=== PATIENT | male | born 1960 | race Caucasian/White ===

== ENCOUNTER 2018-01-24 18:23 | Emergency (ER) | payer MEDICAID ==
[2018-01-24 18:42] VITALS: BP 136/100
--- NOTE | 2018-01-24 19:25 | EDM.PDOC ---
ED HPI GENERAL MEDICAL PROBLEM - General Chief Complaint: Eye Problems Stated Complaint: [id number] BLOOD BLISTER IN EYE GROWING SINCE MORNING Time Seen by Provider: 01/24/18 19:17 Source of Information: Reports: Other (shelter staff) History Limitations: Reports: Uncooperative - History of Present Illness INITIAL COMMENTS - FREE TEXT/NARRATIVE: Patient presents to the ED for left eye injury. shelter staff noted some mild "bloodshot" eyes this evening around 16:00. The left eye progressed to the point where there was redness involving all of the eye except the area directly around the iris. He did not complain of pain nor vision changes, however, history is very difficult to obtain. shelter staff and guardian report that he does have a history of self injuring behavior but this is uncommon as of late. No recent illness. No fever. No known trauma. Discussed with patient's guardian who reports that he normally has good vision and pupils are equal. No history of cataract known to staff. Guardian reports good eyesight normally, unsure of number just that he does not need glasses. - Related Data Allergies Allergy/AdvReac Type Severity Reaction Status Date / Time walnut Allergy Cannot Verified 01/24/18 18:42 Remember corn Allergy Difficulty Uncoded 01/24/18 18:42 Breathing Home Meds: Home Meds Albuterol [Proventil Neb Soln] 2.5 mg INH TID PRN 01/26/15 [History] Budesonide [Pulmicort] 0.5 mg INH BID 01/26/15 [History] Calcium Carbonate/Vitamin D3 [Oyster Shell Calcium-Vit D Tab] 1 each PO BID [History] Fluticasone Furoate [Veramyst] 2 spray NS DAILY 01/26/15 [History] Ibandronate [Boniva] 150 mg PO .MONTHLY 01/26/15 [History] Imipramine HCl 50 mg PO BEDTIME 01/26/15 [History] Lisinopril 30 mg PO DAILY 01/26/15 [History] Na Chloride. 1 gm PO BID 01/26/15 [History] QUEtiapine [SEROquel] 300 mg PO BEDTIME 01/26/15 [History] Escitalopram [Lexapro] 20 mg PO DAILY 09/21/15 [History] LORazepam [Ativan] 1 mg PO ONETIME 09/22/15 [History] Clindamycin Phosphate MISC BID 12/02/15 [History] Ferrous Fumarate [Ferrocite] 106 mg ORAL.INH BID 12/02/15 [History] lamoTRIgine [Lamictal] 150 mg PO BID 12/02/15 [History] Past Medical History HEENT History: Reports: Allergic Rhinitis Cardiovascular History: Reports: Hypertension Respiratory History: Reports: Asthma Gastrointestinal History: Reports: Other (See Below) Other Gastrointestinal History: Esophageal obstruction (impacted peach pit) Attempted removal (Dr. Marte). Transferred to [facility]. Genitourinary History: Reports: Urinary Incontinence Musculoskeletal History: Reports: Other (See Below) Other Musculoskeletal History: LEFT ARM CONTRACTURE Neurological History: Reports: Cerebral Palsy, Seizure, Other (See Below) Other Neuro History: Intellectual disability, impulse control disorder, mood disorder. Psychiatric History: Reports: Emotional Problems, Mood Swings Other Psychiatric History: CP, cerebral palsy, impulse control disorder, intellectual disability. Mental retardation Endocrine/Metabolic History: Reports: Osteopenia Hematologic History: Reports: Anemia, Iron Deficiency Immunologic History: Reports: None Oncologic (Cancer) History: Reports: None Dermatologic History: Reports: Other (See Below) Other Dermatologic History: Acne, gum disease, nonorganic enuresis. (right olecranon bursitis - before) - Past Surgical History Cardiovascular Surgical History: Reports: None Respiratory Surgical History: Reports: None GI Surgical History: Reports: Other (See Below) Male Surgical History: Reports: Other (See Below) Dermatological Surgical History: Reports: Other (See Below) Social & Family History - Family History Family Medical History: Noncontributory - Tobacco Use Smoking Status *Q: Never Smoker Second Hand Smoke Exposure: No - Caffeine Use Caffeine Use: Reports: Soda - Alcohol Use Days Per Week of Alcohol Use: 0 - Recreational Drug Use Recreational Drug Use: No Drug Use in Last 12 Months: No ED ROS GENERAL - Review of Systems Review Of Systems: Unable To Obtain ED EXAM GENERAL W FULL EYE - Physical Exam Exam: See Below Exam Limited By: Uncooperative General Appearance: Alert, No Apparent Distress Eye Exam: Left Eye: Abnormal Pupil, Other (Subconjunctival hemorrhage with ? laceration of the cornea. ) Eyelids: Bilateral: Normal Appearance Pupillary Reaction: Right: Brisk, Left: Absent Ears: Normal External Exam, Hearing Grossly Normal Nose: Normal Inspection, No Blood Throat/Mouth: Normal Lips, Normal Teeth, No Airway Compromise Head: Atraumatic, Normocephalic Neck: Normal Inspection, Full Range of Motion Respiratory/Chest: No Respiratory Distress, Lungs Clear, No Accessory Muscle Use Cardiovascular: Regular Rate, Rhythm, No Murmur GI/Abdominal: Normal Bowel Sounds, Soft, Non-Tender (Male) Exam: Deferred Back Exam: Normal Inspection Neurological: Alert, Other (At baseline) Psychiatric: Other (At baseline, somewhat cooperative with exam) Skin Exam: Warm, Dry Lymphatic: No Adenopathy Course - Vital Signs Last Recorded V/S: Last Vital Signs Temp 37.0 C 01/24/18 18:32 Pulse 99 01/24/18 18:32 Resp 21 H 01/24/18 18:32 BP 136/100 H 01/24/18 18:32 Pulse Ox 98 01/24/18 18:32 - Re-Assessments/Exams Free Text/Narrative Re-Assessment/Exam: Discussed case with Dr. Baum the area operations director fire behavior analyst at [facility] who has agreed to accept the patient. He will exam on arrival. Will travel by private care. shelter staff to transport. Discussed with them and with guardian who agrees to transfer by private vehicle. 01/24/182029 Departure - Departure Time of Disposition: 20:30 Disposition: DC/Tfer to Acute Hospital 02 Clinical Impression: Eye injury Qualifiers: Encounter type: initial encounter Laterality: left Qualified Code(s): S05.92XA - Unspecified injury of left eye and orbit, initial encounter - Discharge Information Referrals: Emmanuel May MD [Primary Care Provider] - Forms: ED Department Discharge Additional Instructions: Proceed by private vehicle directly to [facility] ED where the fire behavior analyst will see you. May take evening medication with a sip of water then nothing by mouth.
== END 2018-01-24 20:45 ==
LOC: DL.ED 18:23
DX: S05.92XA Unspecified injury of left eye and orbit, initial encounter (principal); I10 Essential (primary) hypertension; J45.909 Unspecified asthma, uncomplicated; Z91.018 Allergy to other foods; Z79.899 Other long term (current) drug therapy; X58.XXXA Exposure to other specified factors, initial encounter
CPT/HCPCS: 99284

== ENCOUNTER 2018-12-08 11:59 | Emergency (ER) | payer MEDICAID ==
[2018-12-08 12:05] VITALS: BP 156/107
--- NOTE | 2018-12-08 12:13 | EDM.PDOC ---
ED HPI GENERAL MEDICAL PROBLEM - General Chief Complaint: Respiratory Problem Stated Complaint: UNKNOWN Time Seen by Provider: 12/08/18 12:08 Source of Information: Reports: Patient, EMS, Family History Limitations: Reports: Other (mentally challenged. unco-op) - History of Present Illness INITIAL COMMENTS - FREE TEXT/NARRATIVE: sent from home via sports anchor on mentally challenged pt who is unco-op, thinks he has congestion and pulled out his tooth c/o pain. - Related Data Allergies Allergy/AdvReac Type Severity Reaction Status Date / Time walnut Allergy Cannot Verified 01/24/18 18:42 Remember corn Allergy Difficulty Uncoded 01/24/18 18:42 Breathing Home Meds: Home Meds Albuterol [Proventil Neb Soln] 2.5 mg INH TID PRN 01/26/15 [History] Budesonide [Pulmicort] 0.5 mg INH BID 01/26/15 [History] Calcium Carbonate/Vitamin D3 [Oyster Shell Calcium-Vit D Tab] 1 each PO BID [History] Fluticasone Furoate [Veramyst] 2 spray NS DAILY 01/26/15 [History] Ibandronate [Boniva] 150 mg PO .MONTHLY 01/26/15 [History] Imipramine HCl 50 mg PO BEDTIME 01/26/15 [History] Lisinopril 30 mg PO DAILY 01/26/15 [History] Na Chloride. 1 gm PO BID 01/26/15 [History] QUEtiapine [SEROquel] 300 mg PO BEDTIME 01/26/15 [History] Escitalopram [Lexapro] 20 mg PO DAILY 09/21/15 [History] LORazepam [Ativan] 1 mg PO ONETIME 09/22/15 [History] Clindamycin Phosphate MISC BID 12/02/15 [History] Ferrous Fumarate [Ferrocite] 106 mg ORAL.INH BID 12/02/15 [History] lamoTRIgine [Lamictal] 150 mg PO BID 12/02/15 [History] Past Medical History HEENT History: Reports: Allergic Rhinitis Cardiovascular History: Reports: Hypertension Respiratory History: Reports: Asthma Gastrointestinal History: Reports: Other (See Below) Other Gastrointestinal History: Esophageal obstruction (impacted peach pit) Attempted removal (Dr. Marte). Transferred to [facility]. Genitourinary History: Reports: Urinary Incontinence Musculoskeletal History: Reports: Other (See Below) Other Musculoskeletal History: LEFT ARM CONTRACTURE Neurological History: Reports: Cerebral Palsy, Seizure, Other (See Below) Other Neuro History: Intellectual disability, impulse control disorder, mood disorder. Psychiatric History: Reports: Emotional Problems, Mood Swings Other Psychiatric History: CP, cerebral palsy, impulse control disorder, intellectual disability. Mental retardation Endocrine/Metabolic History: Reports: Osteopenia Hematologic History: Reports: Anemia, Iron Deficiency Immunologic History: Reports: None Oncologic (Cancer) History: Reports: None Dermatologic History: Reports: Other (See Below) Other Dermatologic History: Acne, gum disease, nonorganic enuresis. (right olecranon bursitis - before) - Past Surgical History Cardiovascular Surgical History: Reports: None Respiratory Surgical History: Reports: None GI Surgical History: Reports: Other (See Below) Male Surgical History: Reports: Other (See Below) Dermatological Surgical History: Reports: Other (See Below) Social & Family History - Family History Family Medical History: Noncontributory - Caffeine Use Caffeine Use: Reports: Soda ED ROS GENERAL - Review of Systems Review Of Systems: ROS reveals no pertinent complaints other than HPI. ED EXAM, GENERAL - Physical Exam Exam: See Below Exam Limited By: No Limitations General Appearance: Alert, WD/WN, No Apparent Distress, Other (unco-op, M.C pt, difficult to eval) Ears: Hearing Grossly Normal Throat/Mouth: Normal Voice, No Airway Compromise, Other (upper plate, no gross bleeding, unable eval teeth) Head: Atraumatic Neck: Non-Tender, Full Range of Motion Respiratory/Chest: No Respiratory Distress, Rales, Rhonchi. No: Decreased Breath Sounds Cardiovascular: Regular Rate, Rhythm GI/Abdominal: Soft, Non-Tender Neurological: Alert Psychiatric: Normal Affect, Normal Mood Skin Exam: Warm, Dry, Normal Color Lymphatic: No Adenopathy Course - Vital Signs Last Recorded V/S: Last Vital Signs Temp 37.2 C 12/08/18 12:00 Pulse 98 12/08/18 12:00 Resp 24 H 12/08/18 12:00 BP 156/107 H 12/08/18 12:00 Pulse Ox 97 12/08/18 12:00 - Orders/Labs/Meds Orders: Active Orders 24 hr Category Date Time Status Chest 1V Frontal [CR] Urgent Exams 12/08/18 12:07 Taken Labs: Laboratory Tests 12/08/18 12/08/18 Range/Units 12:26 12:26 WBC 10.1 H (5.0-10.0) 10^3/uL RBC 4.83 (4.6-6.2) 10^6/uL Hgb 12.8 L D (14.0-18.0) g/dL Hct 38.4 L (40.0-54.0) % MCV 79.5 L (80-100) fL MCH 26.5 L (27.0-34.0) pg MCHC 33.3 (33.0-35.0) g/dL Plt Count 252 (150-450) 10^3/uL Neut % (Auto) 59.8 (42.2-75.2) % Lymph % (Auto) 27.3 (20.5-50.1) % [place] % (Auto) 7.1 (2-8) % Eos % (Auto) 5.5 H (1.0-3.0) % Baso % (Auto) 0.3 (0.0-1.0) % Sodium 134 L (135-145) mmol/L Potassium 4.1 (3.6-5.0) mmol/L Chloride 97 L (101-111) mmol/L Carbon Dioxide 26.0 (21.0-31.0) mmol/L Anion Gap 15.1 BUN 14 (7-18) mg/dL Creatinine 1.0 (0.6-1.3) mg/dL Est Cr Clr Drug Dosing TNP Estimated GFR (MDRD) > 60 BUN/Creatinine Ratio 14.00 Glucose 95 (74-105) mg/dL Calcium 9.8 (8.4-10.2) mg/dl Total Bilirubin 0.7 (0.2-1.0) mg/dL AST 28 (10-42) IU/L ALT 27 (10-60) IU/L Alkaline Phosphatase 60 (42-121) IU/L Total Protein 7.3 (6.7-8.2) g/dl Albumin 4.2 (3.2-5.5) g/dl Globulin 3.1 Albumin/Globulin Ratio 1.35 - Re-Assessments/Exams Free Text/Narrative Re-Assessment/Exam: 12/08/18 13:12 results discussed with sports anchor Departure - Departure Time of Disposition: 13:13 Disposition: Home, Self-Care 01 Condition: Good Clinical Impression: Tooth decay, Bronchitis - Discharge Information Instructions: Acute Bronchitis, Adult, [id number] Forms: ED Department Discharge Additional Instructions: 1) soft diet 2) see dentist rx given; clindamycin 150mg qid x 40 - My Orders Last 24 Hours: My Active Orders 12/08/18 12:07 Chest 1V Frontal [CR] Urgent - Assessment/Plan Last 24 Hours: My Active Orders 12/08/18 12:07 Chest 1V Frontal [CR] Urgent
[2018-12-08 12:53] LABS: ANION GAP 15.1; CHLORIDE,CL 97 mmol/L (101-111); SODIUM,NA 134 mmol/L (135-145)
== END 2018-12-08 13:20 | disposition home or self-care (01) ==
LOC: DL.ED 11:59
DX: K04.7 Periapical abscess without sinus (principal); J40 Bronchitis, not specified as acute or chronic; I10 Essential (primary) hypertension; Z91.018 Allergy to other foods; Z79.899 Other long term (current) drug therapy
CPT/HCPCS: 36415; 71045; 80053; 85025; 99283-25

== ENCOUNTER 2019-05-29 18:13 | Emergency (ER) | payer MEDICAID ==
[2019-05-29] MEDS ORDERED: LORazepam 1 MG Tab PO ONE (19:10)
[2019-05-29] MEDS ORDERED: Ketamine 500 mg/10 ML MDV IM ONE (21:57)
[2019-05-29] MEDS ORDERED: Glycopyrrolate 0.2 MG/ML 2 ML SDV IVPUSH ONE (21:58)
[2019-05-29] MEDS ORDERED: Iopamidol 612 MG/ML 75 ML Bottle IVPUSH ONE (22:10)
[2019-05-29] MEDS ORDERED: Ketamine 500 mg/10 ML MDV IV ONE (23:03)
[2019-05-29 23:08] LABS: ANION GAP 18.1
--- NOTE | 2019-05-29 23:21 | EDM.PDOC ---
ED HPI GENERAL MEDICAL PROBLEM - General Chief Complaint: Abdominal Pain Stated Complaint: AMBULANCE Time Seen by Provider: 05/29/19 19:20 Source of Information: Reports: Family, Other (staff care attendents) History Limitations: Reports: No Limitations - History of Present Illness INITIAL COMMENTS - FREE TEXT/NARRATIVE: ED wheel chair, Mentally handicapped patient with 2 staff. Staff report, patient fell on Monday in [place] ? seizure, No post ictal period, assess by RN appeared fine, Today, seems more agitated , change in behavior, No fever, decreased appetite, Not interacting with staff as much. Abdominal Pain Score (Numeric/FACES): 5 - Related Data Allergies Allergy/AdvReac Type Severity Reaction Status Date / Time walnut Allergy Cannot Verified 05/29/19 18:25 Remember corn Allergy Difficulty Uncoded 05/29/19 18:25 Breathing Home Meds: Home Meds Albuterol [Proventil Neb Soln] 2.5 mg INH TID PRN 01/26/15 [History] Budesonide [Pulmicort] 0.5 mg INH BID 01/26/15 [History] Calcium Carbonate/Vitamin D3 [Oyster Shell Calcium-Vit D Tab] 1 each PO BID [History] Fluticasone Furoate [Veramyst] 2 spray NS DAILY 01/26/15 [History] Ibandronate [Boniva] 150 mg PO .MONTHLY 01/26/15 [History] Imipramine HCl 50 mg PO BEDTIME 01/26/15 [History] Na Chloride. 1 gm PO BID 01/26/15 [History] QUEtiapine [SEROquel] 300 mg PO BEDTIME 01/26/15 [History] Escitalopram [Lexapro] 20 mg PO DAILY 09/21/15 [History] Clindamycin Phosphate 1 ml MISC BID 12/02/15 [History] Ferrous Fumarate [Ferrocite] 106 mg ORAL.INH BID 12/02/15 [History] lamoTRIgine [Lamictal] 150 mg PO BID 12/02/15 [History] Metoprolol Tartrate 25 mg PO BID 05/29/19 [History] Tamsulosin [Flomax] 0.4 mg PO BEDTIME 05/29/19 [History] Past Medical History HEENT History: Reports: Allergic Rhinitis Cardiovascular History: Reports: Hypertension Respiratory History: Reports: Asthma Gastrointestinal History: Reports: Other (See Below) Other Gastrointestinal History: Esophageal obstruction (impacted peach pit) Attempted removal (Dr. Marte). Transferred to [facility]. Genitourinary History: Reports: Urinary Incontinence Musculoskeletal History: Reports: Other (See Below) Other Musculoskeletal History: LEFT ARM CONTRACTURE Neurological History: Reports: Cerebral Palsy, Seizure, Other (See Below) Other Neuro History: Intellectual disability, impulse control disorder, mood disorder. Psychiatric History: Reports: Emotional Problems, Mood Swings Other Psychiatric History: CP, cerebral palsy, impulse control disorder, intellectual disability. Mental retardation Endocrine/Metabolic History: Reports: Osteopenia Hematologic History: Reports: Anemia, Iron Deficiency Immunologic History: Reports: None Oncologic (Cancer) History: Reports: None Dermatologic History: Reports: Other (See Below) Other Dermatologic History: Acne, gum disease, nonorganic enuresis. (right olecranon bursitis - before) - Past Surgical History Head Surgeries/Procedures: Reports: None Cardiovascular Surgical History: Reports: None Respiratory Surgical History: Reports: None GI Surgical History: Reports: Other (See Below) Dermatological Surgical History: Reports: Other (See Below) Social & Family History - Family History Family Medical History: Noncontributory - Tobacco Use Smoking Status *Q: Never Smoker Second Hand Smoke Exposure: No - Caffeine Use Caffeine Use: Reports: Coffee - Recreational Drug Use Recreational Drug Use: No ED ROS GENERAL - Review of Systems Review Of Systems: ROS reveals no pertinent complaints other than HPI. Constitutional: Reports: Decreased Appetite HEENT: Reports: No Symptoms Respiratory: Reports: Cough, Other (hx COPD ) Cardiovascular: Reports: No Symptoms GI/Abdominal: Reports: Constipation, Difficulty Swallowing, Distension Musculoskeletal: Reports: Other (weakness left arm from remote previous falls ) Skin: Reports: No Symptoms Psychiatric: Reports: Agitation ED EXAM, GI/ABD - Physical Exam Exam: See Below Text/Narrative:: Exam complete following sedation . Exam Limited By: Combative/Threatening General Appearance: Alert, No Apparent Distress Eyes: Bilateral: EOMI, Abnormal EOM, Erythema Ears: Normal External Exam, Hearing Grossly Normal Nose: Normal Inspection Throat/Mouth: Normal Inspection Head: Atraumatic, Normocephalic Neck: Full Range of Motion Respiratory/Chest: Normal Breath Sounds Cardiovascular: Normal Peripheral Pulses, Regular Rate, Rhythm GI/Abdominal Exam: Normal Bowel Sounds, Soft, Non-Tender, No Organomegaly, Other (round) Extremities: Normal Inspection, Other (contractures bilateral upper, gerater on left, muscular atrophy humerus area on left) Neurological: Alert, Other (developmental delayed, ). No: Normal Cognition Psychiatric: Other (agitated combative yelling) Skin Exam: Warm, Dry, Intact, Normal Color. No: Erythema Course - Vital Signs Last Recorded V/S: Last Vital Signs Temp 98.7 F 05/30/19 00:14 Pulse 105 H 05/30/19 00:14 Resp 22 H 05/30/19 00:14 BP 129/73 05/30/19 00:14 Pulse Ox 99 05/30/19 00:14 - Orders/Labs/Meds Labs: Laboratory Tests 05/29/19 05/29/19 05/29/19 Range/Units 19:04 22:30 22:30 WBC 18.3 H (5.0-10.0) 10^3/uL RBC 5.28 (4.6-6.2) 10^6/uL Hgb 14.5 D (14.0-18.0) g/dL Hct 42.9 (40.0-54.0) % MCV 81.3 (80-100) fL MCH 27.5 (27.0-34.0) pg MCHC 33.8 (33.0-35.0) g/dL Plt Count 343 D (150-450) 10^3/uL Neut % (Auto) 82.3 H (42.2-75.2) % Lymph % (Auto) 10.9 L (20.5-50.1) % [place] % (Auto) 6.4 (2-8) % Eos % (Auto) 0.2 L (1.0-3.0) % Baso % (Auto) 0.2 (0.0-1.0) % PT 9.9 (9.0-12.0) SEC INR 1.0 (0.9-1.2) Sodium (135-145) mmol/L Potassium (3.6-5.0) mmol/L Chloride (101-111) mmol/L Carbon Dioxide (21.0-31.0) mmol/L Anion Gap BUN (7-18) mg/dL Creatinine (0.6-1.3) mg/dL Est Cr Clr Drug Dosing mL/min Estimated GFR (MDRD) BUN/Creatinine Ratio Glucose (74-105) mg/dL Lactic Acid (0.5-2.2) mmol/L Calcium (8.4-10.2) mg/dl Total Bilirubin (0.2-1.0) mg/dL AST (10-42) IU/L ALT (10-60) IU/L Alkaline Phosphatase (42-121) IU/L Total Protein (6.7-8.2) g/dl Albumin (3.2-5.5) g/dl Globulin Albumin/Globulin Ratio Amylase (28-100) U/L Lipase (22-51) U/L Urine Color Yellow (YELLOW) Urine Appearance Clear (CLEAR) Urine pH 7.0 (5.0-9.0) Ur Specific [place] 1.020 (1.005-1.030) Urine Protein Trace H (NEGATIVE) Urine Glucose (UA) Negative (NEGATIVE) Urine Ketones Negative (NEGATIVE) Urine Occult Blood Negative (NEGATIVE) Urine Nitrite Negative (NEGATIVE) Urine Bilirubin Negative (NEGATIVE) Urine Urobilinogen 0.2 (0.2-1.0) mg/dL Ur Leukocyte Esterase Negative (NEGATIVE) Urine RBC 0-5 /HPF Urine WBC 0-5 (0-5/HPF) /HPF Ur Epithelial Cells Rare (NOT SEEN) /HPF Amorphous Sediment Moderate (NOT SEEN) /HPF Urine Bacteria Few (0-FEW/HPF) /HPF Granular Casts Few (NOT SEEN) /LPF 05/29/19 05/29/19 Range/Units 22:30 23:50 WBC (5.0-10.0) 10^3/uL RBC (4.6-6.2) 10^6/uL Hgb (14.0-18.0) g/dL Hct (40.0-54.0) % MCV (80-100) fL MCH (27.0-34.0) pg MCHC (33.0-35.0) g/dL Plt Count (150-450) 10^3/uL Neut % (Auto) (42.2-75.2) % Lymph % (Auto) (20.5-50.1) % [place] % (Auto) (2-8) % Eos % (Auto) (1.0-3.0) % Baso % (Auto) (0.0-1.0) % PT (9.0-12.0) SEC INR (0.9-1.2) Sodium 139 (135-145) mmol/L Potassium 4.1 (3.6-5.0) mmol/L Chloride 99 L (101-111) mmol/L Carbon Dioxide 26.0 (21.0-31.0) mmol/L Anion Gap 18.1 BUN 25 H (7-18) mg/dL Creatinine 1.4 H (0.6-1.3) mg/dL Est Cr Clr Drug Dosing 57.00 mL/min Estimated GFR (MDRD) 52 BUN/Creatinine Ratio 17.85 Glucose 117 H (74-105) mg/dL Lactic Acid 1.9 (0.5-2.2) mmol/L Calcium 10.1 (8.4-10.2) mg/dl Total Bilirubin 0.9 (0.2-1.0) mg/dL AST 44 H (10-42) IU/L ALT 27 (10-60) IU/L Alkaline Phosphatase 68 (42-121) IU/L Total Protein 8.1 (6.7-8.2) g/dl Albumin 4.7 (3.2-5.5) g/dl Globulin 3.4 Albumin/Globulin Ratio 1.38 Amylase 29 (28-100) U/L Lipase 31 (22-51) U/L Urine Color (YELLOW) Urine Appearance (CLEAR) Urine pH (5.0-9.0) Ur Specific Richardson (1.005-1.030) Urine Protein (NEGATIVE) Urine Glucose (UA) (NEGATIVE) Urine Ketones (NEGATIVE) Urine Occult Blood (NEGATIVE) Urine Nitrite (NEGATIVE) Urine Bilirubin (NEGATIVE) Urine Urobilinogen (0.2-1.0) mg/dL Ur Leukocyte Esterase (NEGATIVE) Urine RBC /HPF Urine WBC (0-5/HPF) /HPF Ur Epithelial Cells (NOT SEEN) /HPF Amorphous Sediment (NOT SEEN) /HPF Urine Bacteria (0-FEW/HPF) /HPF Granular Casts (NOT SEEN) /LPF Meds: Medications Discontinued Medications Generic Name Dose Route Start Last Admin Trade Name Freq PRN Reason Stop Dose Admin Glycopyrrolate 0.4 mg 05/29/19 21:58 05/29/19 22:33 Glycopyrrolate IVPUSH 05/29/19 21:59 0.4 mg ONETIME ONE Administration Ceftriaxone Sodium 1 gm/ 50 mls @ 50 mls/hr 05/29/19 23:48 05/30/19 00:09 Sodium Chloride IV 05/30/19 00:47 50 mls/hr ONETIME ONE Administration Sodium Chloride 1,000 mls @ 50 mls/hr 05/29/19 23:48 05/30/19 00:08 Normal Saline IV 05/30/19 19:47 50 mls/hr .BOLUS ONE Administration Iopamidol 75 ml 05/29/19 22:10 Isovue-300 (61%) IVPUSH 05/29/19 22:11 ONETIME ONE Ketamine HCl 600 mg 05/29/19 21:57 05/29/19 22:33 Ketalar IM 05/29/19 21:58 600 mg ONETIME ONE Administration Ketamine HCl 80 mg 05/29/19 23:03 05/29/19 23:04 Ketalar IV 05/29/19 23:04 80 mg ONETIME ONE Administration Lorazepam 1 mg 05/29/19 19:10 05/29/19 19:23 Ativan PO 05/29/19 19:11 1 mg ONETIME ONE Administration Lorazepam 2 mg 05/30/19 00:07 05/30/19 00:11 Ativan IVPUSH 05/30/19 00:08 2 mg ONETIME ONE Administration - Radiology Interpretation Free Text/Narrative:: see reports - Re-Assessments/Exams Free Text/Narrative Re-Assessment/Exam: 05/31/19 07:16 Patient agitated, flappng, yelling pushing at familiar staff louder and striking out at nsg staff, , Departure - Departure Time of Disposition: 00:35 Disposition: DC/Tfer to Acute Hospital 02 Condition: Good Clinical Impression: Constipation by delayed colonic transit Contusion of scalp Qualifiers: Encounter type: initial encounter Qualified Code(s): S00.03XA - Contusion of scalp, initial encounter Altered mental state Qualifiers: Altered mental status type: unspecified Qualified Code(s): R41.82 - Altered mental status, unspecified RLL pneumonia Qualifiers: Pneumonia type: due to unspecified organism Qualified Code(s): J18.1 - Lobar pneumonia, unspecified organism - Discharge Information *PRESCRIPTION DRUG MONITORING PROGRAM REVIEWED*: No *COPY OF PRESCRIPTION DRUG MONITORING REPORT IN PATIENT CAROLEE: No Referrals: PCP,None [Primary Care Provider] - Forms: ED Department Discharge
[2019-05-29] MEDS ORDERED: Sodium Chloride 0.9% 1,000 ML IV ONE (23:48)
[2019-05-29] MEDS ORDERED: cefTRIAXone 1 GM in Sodium Chloride 0.9% 50 ML IV ONE (23:48)
[2019-05-30] MEDS ORDERED: LORazepam 2 MG/ML Syringe IVPUSH ONE (00:07)
[2019-05-30 00:15] VITALS: BP 129/73
== END 2019-05-30 00:35 ==
LOC: DL.ED 18:13
DX: S00.03XA Contusion of scalp, initial encounter (principal); J18.1 Lobar pneumonia, unspecified organism; K59.01 Slow transit constipation; R41.82 Altered mental status, unspecified; I10 Essential (primary) hypertension; J45.909 Unspecified asthma, uncomplicated; Z91.018 Allergy to other foods; Z79.899 Other long term (current) drug therapy; W18.39XA Other fall on same level, initial encounter
CPT/HCPCS: 36415; 70450; 71045; 74018; 74176; 80053; 81001; 82150; 83605; 83690; 85025; 85610; 87040; 96365; 96372; 96375; 99285; A9270; J0696; J2060; J3490; J7030; J7050

== ENCOUNTER 2019-09-23 17:16 | Emergency (ER) | payer MEDICAID ==
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
== END 2019-09-23 18:10 | disposition home or self-care (01) ==
LOC: DL.ED 17:16
DX: S01.01XA Laceration without foreign body of scalp, initial encounter (principal); I10 Essential (primary) hypertension; J45.909 Unspecified asthma, uncomplicated; G40.909 Epilepsy, unspecified, not intractable, without status epilepticus; Z91.018 Allergy to other foods; Z79.51 Long term (current) use of inhaled steroids; Z79.899 Other long term (current) drug therapy; W01.10XA Fall on same level from slipping, tripping and stumbling with subsequent striking against unspecified object, initial encounter; Y92.009 Unspecified place in unspecified non-institutional (private) residence as the place of occurrence of the external cause
CPT/HCPCS: 12001; 99282

== ENCOUNTER 2020-03-18 17:53 | Emergency (ER) | payer MEDICAID ==
[2020-03-18 18:13] VITALS: BP 216/164; PULSE 74
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
== END 2020-03-18 19:05 | disposition home or self-care (01) ==
LOC: DL.ED 17:53
DX: S80.02XA Contusion of left knee, initial encounter (principal); I10 Essential (primary) hypertension; J45.909 Unspecified asthma, uncomplicated; D50.9 Iron deficiency anemia, unspecified; Z91.018 Allergy to other foods; Z79.899 Other long term (current) drug therapy; V89.2XXA Person injured in unspecified motor-vehicle accident, traffic, initial encounter
CPT/HCPCS: 99284

== ENCOUNTER 2020-10-17 20:53 | Emergency (ER) | payer MEDICAID ==
[2020-10-17 21:20] VITALS: BP 167/84; PULSE 75
[2020-10-17] MEDS ORDERED: Ondansetron 4 MG Tab.DIS PO ONE (21:45)
[2020-10-17] MEDS ORDERED: Ondansetron 4 MG/2 ML SDV IVPUSH ONE (21:48)
--- NOTE | 2020-10-17 21:48 | EDM.PDOC ---
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 also pt not acting his usual self today. and been vomitng retching on-off. - Related Data Allergies Allergy/AdvReac Type Severity Reaction Status Date / Time animal dander Allergy Cannot Verified 10/17/20 21:21 Remember mold Allergy Cannot Verified 10/17/20 21:21 Remember ragweed pollen Allergy Cannot Verified 10/17/20 21:21 Remember walnut Allergy Cannot Verified 10/17/20 21:21 Remember corn Allergy Difficulty Uncoded 10/17/20 21:21 Breathing cotton seed Allergy Cannot Uncoded 10/17/20 21:21 Remember dust Allergy Cannot Uncoded 10/17/20 21:21 Remember Home Meds: Home Meds Albuterol [Proventil Neb Soln] 2.5 mg INH TID PRN 01/26/15 [History] Budesonide [Pulmicort] 0.5 mg INH BID 01/26/15 [History] Calcium Carbonate/Vitamin D3 [Oyster Shell Calcium-Vit D Tab] 1 each PO BID 01/26/15 [History] Fluticasone Furoate [Veramyst] 2 spray NASBOTH DAILY 01/26/15 [History] Ibandronate [Boniva] 150 mg PO .MONTHLY 01/26/15 [History] Imipramine HCl 50 mg PO BEDTIME 01/26/15 [History] Na Chloride. 1 gm PO BID 01/26/15 [History] QUEtiapine [SEROquel] 300 mg PO BEDTIME 01/26/15 [History] Escitalopram [Lexapro] 20 mg PO BEDTIME 09/21/15 [History] Clindamycin Phosphate 1 ml TOP BID 12/02/15 [History] Ferrous Fumarate [Ferrocite] 106 mg PO BID 12/02/15 [History] lamoTRIgine [Lamictal] 150 mg PO BID 12/02/15 [History] Metoprolol Tartrate 25 mg PO BID 05/29/19 [History] Tamsulosin [Flomax] 0.4 mg PO BEDTIME 05/29/19 [History] Acetaminophen [Acetaminophen Extra Strength] 500 mg PO BID 10/17/20 [History] Albuterol [Proventil HFA] 200 puff INH Q1H PRN 10/17/20 [History] Albuterol/Ipratropium [DuoNeb 3.0-0.5 MG/3 ML] 1 dose INH Q4H 10/17/20 [History] Carbamide Peroxide [Debrox] 15 ml OT ASDIRECTED 10/17/20 [History] Docusate Sodium 100 mg PO BID 10/17/20 [History] Montelukast [Singulair] 10 mg PO BEDTIME 10/17/20 [History] Prenaplus 1 tab PO DAILY 10/17/20 [History] QUEtiapine [SEROquel] 50 mg PO BEDTIME 10/17/20 [History] Sodium Chloride 1 gm PO BID 10/17/20 [History] polyethylene glycoL 3350 [MiraLAX] 17 gm PO DAILY PRN 10/17/20 [History] Past Medical History HEENT History: Reports: Allergic Rhinitis Cardiovascular History: Reports: Hypertension Respiratory History: Reports: Asthma Gastrointestinal History: Reports: Other (See Below) Other Gastrointestinal History: Esophageal obstruction (impacted peach pit) Attempted removal (Dr. Marte). Transferred to [facility]. Genitourinary History: Reports: Urinary Incontinence Musculoskeletal History: Reports: Other (See Below) Other Musculoskeletal History: LEFT ARM CONTRACTURE Neurological History: Reports: Cerebral Palsy, Seizure, Other (See Below) Other Neuro History: Intellectual disability, impulse control disorder, mood disorder. Psychiatric History: Reports: Emotional Problems, Mood Swings Other Psychiatric History: CP, cerebral palsy, impulse control disorder, intellectual disability. Mental retardation Endocrine/Metabolic History: Reports: Osteopenia Hematologic History: Reports: Anemia, Iron Deficiency Immunologic History: Reports: None Oncologic (Cancer) History: Reports: None Dermatologic History: Reports: Other (See Below) Other Dermatologic History: Acne, gum disease, nonorganic enuresis. (right olecranon bursitis - before) - Infectious Disease History Infectious Disease History: Reports: None - Past Surgical History Head Surgeries/Procedures: Reports: None HEENT Surgical History: Reports: None Cardiovascular Surgical History: Reports: None Respiratory Surgical History: Reports: None GI Surgical History: Reports: Other (See Below) Other GI Surgeries/Procedures: Abcess drained right axillary (MRSA infection) long ago Male Surgical History: Reports: Other (See Below) Other Male Surgeries/Procedures: Left inguinal/radical orchiectomy 05-05-00 (Dr. Robb) Dermatological Surgical History: Reports: Other (See Below) Social & Family History - Family History Family Medical History: No Pertinent Family History - Tobacco Use Tobacco Use Status *Q: Never Tobacco User Second Hand Smoke Exposure: No - Caffeine Use Caffeine Use: Reports: None - Recreational Drug Use Recreational Drug Use: No ED ROS GENERAL - Review of Systems Review Of Systems: Comprehensive ROS is negative, except as noted in HPI. - Physical Exam Exam: See Below Exam Limited By: Other (REM, unco-op) General Appearance: Alert, WD/WN, Other (agitated) Eye Exam: Left Eye: Abnormal Pupil (left 6mm right 4mm) Ears: Hearing Grossly Normal Throat/Mouth: Normal Voice, No Airway Compromise Head Exam: Atraumatic Neck: Non-Tender, Full Range of Motion Respiratory/Chest: No Respiratory Distress Cardiovascular: Regular Rate, Rhythm GI/Abdominal: Soft, Non-Tender (Male) Exam: Deferred Rectal (Males) Exam: Deferred Neuro Exam (Abbreviated): Alert, Other (REM agitated) Extremities: Normal Range of Motion Psychiatric: Other (agitated) Skin Exam: Warm, Dry, Normal Color Course - Vital Signs Last Recorded V/S: Last Vital Signs Temp 35.6 C L 10/17/20 21:05 Pulse 75 10/17/20 21:05 Resp 20 10/17/20 21:05 BP 167/84 H 10/17/20 21:05 Pulse Ox 94 L 10/17/20 21:05 - Orders/Labs/Meds Orders: Active Orders 24 hr Category Date Time Status UA RFX NIESHA AND CULT IF INDIC [URIN] Stat Lab 10/17/20 21:24 Ordered Haloperidol Lactate [Haldol] Med 10/17/20 23:48 Once 5 mg IM ONETIME ONE Labs: Laboratory Tests 10/17/20 10/17/20 Range/Units 21:44 21:44 WBC 15.3 H (5.0-10.0) 10^3/uL RBC 4.16 L (4.6-6.2) 10^6/uL Hgb 11.9 L D (14.0-18.0) g/dL Hct 33.4 L (40.0-54.0) % MCV 80.3 (80-100) fL MCH 28.6 (27.0-34.0) pg MCHC 35.6 H (33.0-35.0) g/dL Plt Count 310 (150-450) 10^3/uL Neut % (Auto) 70.8 (42.2-75.2) % Lymph % (Auto) 18.1 L (20.5-50.1) % [place] % (Auto) 7.9 (2-8) % Eos % (Auto) 2.9 (1.0-3.0) % Baso % (Auto) 0.3 (0.0-1.0) % Sodium 118 L* (136-145) mmol/L Potassium 4.7 (3.5-5.1) mmol/L Chloride 84 L (98-107) mmol/L Carbon Dioxide 27 (21-32) mmol/L Anion Gap 11.7 (7-13) mEq/L BUN 12 (7-18) mg/dL Creatinine 0.83 (0.70-1.30) mg/dL Est Cr Clr Drug Dosing TNP Estimated GFR (MDRD) > 60 BUN/Creatinine Ratio 14.5 (No establ ref range) Glucose 118 H (74-99) mg/dL Calcium 8.1 L (8.5-10.1) mg/dL Total Bilirubin 0.5 (0.2-1.0) mg/dL AST 17 (15-37) U/L ALT 23 (16-63) U/L Alkaline Phosphatase 68 (46-116) U/L Total Protein 6.3 L (6.4-8.2) g/dL Albumin 3.8 (3.4-5.0) g/dL Globulin 2.5 Albumin/Globulin Ratio 1.5 Meds: Medications Discontinued Medications Generic Name Dose Route Start Last Admin Trade Name Freq PRN Reason Stop Dose Admin Sodium Chloride 1,000 mls @ 999 mls/hr 10/17/20 22:31 10/17/20 22:51 Normal Saline IV 10/17/20 23:31 999 mls/hr .BOLUS ONE Administration Lorazepam 2 mg 10/17/20 21:55 10/17/20 21:59 Ativan IVPUSH 10/17/20 21:56 2 mg ONETIME ONE Administration Lorazepam 2 mg 10/17/20 22:20 10/17/20 22:27 Ativan IVPUSH 10/17/20 22:21 2 mg ONETIME ONE Administration Ondansetron HCl 4 mg 10/17/20 21:45 10/17/20 21:54 Zofran Odt PO 10/17/20 21:46 Not Given ONETIME ONE Ondansetron HCl 4 mg 10/17/20 21:48 10/17/20 21:50 Zofran IVPUSH 10/17/20 21:49 4 mg ONETIME ONE Administration - Re-Assessments/Exams Free Text/Narrative Re-Assessment/Exam: 10/17/20 23:50 results discussed with assistant infant teacher and case discussed with Dr Choi @ [facility] who kindly accepted pt Departure - Departure Time of Disposition: 23:51 Disposition: DC/Tfer to Acute Hospital 02 Condition: Fair Clinical Impression: Cerebral edema, Edema of cerebellum, Seizure, Hyponatremia Altered mental state Qualifiers: Altered mental status type: unspecified Qualified Code(s): R41.82 - Altered mental status, unspecified - Discharge Information Forms: Interfacility Transfer [facility] Sepsis Event Note (ED) - Evaluation Sepsis Screening Result: No Definite Risk - Focused Exam Vital Signs: Vital Signs Temp Pulse Resp BP Pulse Ox 10/17/20 21:05 35.6 C L 75 20 167/84 H 94 L - My Orders Last 24 Hours: My Active Orders 10/17/20 21:24 UA RFX NIESHA AND CULT IF INDIC [URIN] Stat 10/17/20 23:48 Haloperidol Lactate [Haldol] 5 mg IM ONETIME ONE - Assessment/Plan Last 24 Hours: My Active Orders 10/17/20 21:24 UA RFX NIESHA AND CULT IF INDIC [URIN] Stat 10/17/20 23:48 Haloperidol Lactate [Haldol] 5 mg IM ONETIME ONE
[2020-10-17] MEDS ORDERED: LORazepam 2 MG/ML SDV IVPUSH ONE ×2 (21:55→22:20)
[2020-10-17 22:24] LABS: ANION GAP 11.7 mEq/L (7-13); CHLORIDE,CL 84 mmol/L (98-107)
[2020-10-17 22:30] LABS: SODIUM,NA 118 mmol/L (136-145)
[2020-10-17] MEDS ORDERED: Sodium Chloride 0.9% 1,000 ML IV ONE (22:31)
--- NOTE | 2020-10-17 23:01 | CT ---
PROCEDURE INFORMATION: Exam: CT Head Without Contrast Exam date and time: 10/17/2020 10:25 PM Age: 60 years old Clinical indication: Other: Mentally disabled--unable to cooperate; Additional info: Left pupils enlarged, seizures TECHNIQUE: Imaging protocol: Computed tomography of the head without contrast. Radiation optimization: All CT scans at this facility use at least one of these dose optimization techniques: automated exposure control; mA and/or kV adjustment per patient size (includes targeted exams where dose is matched to clinical indication); or iterative reconstruction. COMPARISON: CT Head wo Cont 05/29/2019 10:45 PM FINDINGS: Brain: Area of low attenuation involving the left cerebellum also new since the prior study. Cerebral ventricles: No ventriculomegaly. Bones/joints: Unremarkable. No acute fracture. Paranasal sinuses: Visualized sinuses are unremarkable. No fluid levels. Mastoid air cells: Visualized mastoid air cells are well aerated. Soft tissues: Subtle area of low attenuation involving the right frontal parietal region best seen on series 2, image 28 and 29. This is a new finding since the prior study dated 05/29/2019. This may represent edema or acute infarct. Other findings: No definite hemorrhage. IMPRESSION: 1. Two subtle areas of low attenuation involving the right frontal parietal region as well as left cerebellum which may represent infarcts or edema. Both of which are new since the prior study. There is extreme amount of beam hardening artifact. MRI of the brain with gadolinium enhancement is suggested. 2. No discrete hemorrhage is identified
[2020-10-17] MEDS ORDERED: Haloperidol Lactate 5 MG/ML SDV IM ONE (23:48)
== END 2020-10-18 00:39 ==
LOC: DL.ED 20:53
DX: R56.9 Unspecified convulsions (principal); R41.82 Altered mental status, unspecified; E87.1 Hypo-osmolality and hyponatremia; G93.6 Cerebral edema; I10 Essential (primary) hypertension; J45.909 Unspecified asthma, uncomplicated; D64.9 Anemia, unspecified; Z91.048 Other nonmedicinal substance allergy status; Z91.018 Allergy to other foods; Z79.899 Other long term (current) drug therapy
CPT/HCPCS: 36415; 70450; 80053; 85025; 96372; 96374; 96375; 99285; J1630; J2060; J2405; J7030; 99284

== ENCOUNTER 2020-12-13 14:29 | Emergency (ER) | payer MEDICAID ==
[2020-12-13 14:36] VITALS: BP 160/80; PULSE 96
[2020-12-13 16:04] LABS: ANION GAP 13.6 mEq/L (7-13); CHLORIDE,CL 91 mmol/L (98-107); SODIUM,NA 129 mmol/L (136-145)
--- NOTE | 2020-12-13 17:02 | CR ---
PROCEDURE INFORMATION: Exam: XR Chest Exam date and time: 12/13/2020 4:08 PM Age: 60 years old Clinical indication: Cough; Patient HX: Mentally challenged, best uprights i could get; Additional info: Course, wheezes, asthma TECHNIQUE: Imaging protocol: XR of the chest Views: 1 view. COMPARISON: Chest 1[facility] 05/29/2019 11:14 PM FINDINGS: Tubes, catheters and devices: Right sided indwelling central venous catheter with tip in the superior vena cava. Lungs: No suspicious pulmonary nodules or areas of lung consolidation. Pleural spaces: Unremarkable. No pleural effusion. No pneumothorax. Heart/Mediastinum: Unremarkable. No cardiomegaly. Bones/joints: Arthritis of each shoulder. Age-appropriate spondylosis with a levoscoliosis. IMPRESSION: 1. No active disease of the chest. 2. No significant interval change when compared to the CR Chest 1[facility] 05/29/2019 11:14 PM.
--- NOTE | 2020-12-13 17:03 | CR ---
PROCEDURE INFORMATION: Exam: XR Abdomen Exam date and time: 12/13/2020 4:11 PM Age: 60 years old Clinical indication: Other: Pain--best uprights i could get; Additional info: HX of sbo, small bms TECHNIQUE: Imaging protocol: XR of the abdomen. Views: Frontal supine view of the abdomen. 1 View. COMPARISON: CR Abdomen 1[facility] 05/29/2019 8:20 PM FINDINGS: Gastrointestinal tract: Normal. No bowel dilation. Bones/joints: Mild S shaped scoliosis. Mild spondylosis. IMPRESSION: No evidence for small bowel obstruction.
--- NOTE | 2020-12-13 17:11 | EDM.PDOC ---
Scribed by Delisa Ken 12/13/20 1718 for Karina Scott NP ED HPI GENERAL MEDICAL PROBLEM - General Chief Complaint: Neurological Problem Stated Complaint: SEIZURES Time Seen by Provider: 12/13/20 15:45 Source of Information: Reports: Patient, EMS, EMS Notes Reviewed, RN, RN Notes Reviewed History Limitations: Reports: No Limitations - History of Present Illness INITIAL COMMENTS - FREE TEXT/NARRATIVE: Patient is a 60-year-old patient who arrives to ED by [facility] after a complaint of seizure like activity. Staff assisting the patient States the last time he had a seizure-like activity was in October when he had a small bowel obstruction. Staff states last bowel movement was this A.M. and was very small. Staff states history of asthma. Staff did report that the patient was asking for water and alter throughout the "seizure-like activity" which he states he becomes somewhat agitated and shakes. When asked about pain, the patient points to the epigastrium. Staff denies recent illness. Onset: Today Duration: Getting Worse Quality: Reports: Ache Severity: Moderate Improves with: Reports: None Worsens with: Reports: None Associated Symptoms: Reports: No Other Symptoms - Related Data Allergies Allergy/AdvReac Type Severity Reaction Status Date / Time animal dander Allergy Cannot Verified 12/13/20 14:47 Remember mold Allergy Cannot Verified 12/13/20 14:47 Remember ragweed pollen Allergy Cannot Verified 12/13/20 14:47 Remember walnut Allergy Cannot Verified 12/13/20 14:47 Remember corn Allergy Difficulty Uncoded 10/17/20 21:21 Breathing cotton seed Allergy Cannot Uncoded 10/17/20 21:21 Remember dust Allergy Cannot Uncoded 10/17/20 21:21 Remember Home Meds: Home Meds Albuterol [Proventil Neb Soln] 2.5 mg INH TID PRN 01/26/15 [History] Budesonide [Pulmicort] 0.5 mg INH BID 01/26/15 [History] Calcium Carbonate/Vitamin D3 [Oyster Shell Calcium-Vit D Tab] 1 each PO BID 01/26/15 [History] Fluticasone Furoate [Veramyst] 2 spray NASBOTH DAILY 01/26/15 [History] Ibandronate [Boniva] 150 mg PO .MONTHLY 01/26/15 [History] Imipramine HCl 50 mg PO BEDTIME 01/26/15 [History] Na Chloride. 1 gm PO BID 01/26/15 [History] QUEtiapine [SEROquel] 300 mg PO BEDTIME 01/26/15 [History] Escitalopram [Lexapro] 20 mg PO BEDTIME 09/21/15 [History] Clindamycin Phosphate 1 ml TOP BID 12/02/15 [History] Ferrous Fumarate [Ferrocite] 106 mg PO BID 12/02/15 [History] lamoTRIgine [Lamictal] 150 mg PO BID 12/02/15 [History] Metoprolol Tartrate 25 mg PO BID 05/29/19 [History] Tamsulosin [Flomax] 0.4 mg PO BEDTIME 05/29/19 [History] Acetaminophen [Acetaminophen Extra Strength] 500 mg PO BID 10/17/20 [History] Albuterol [Proventil HFA] 200 puff INH Q1H PRN 10/17/20 [History] Albuterol/Ipratropium [DuoNeb 3.0-0.5 MG/3 ML] 1 dose INH Q4H 10/17/20 [History] Carbamide Peroxide [Debrox] 15 ml OT ASDIRECTED 10/17/20 [History] Docusate Sodium 100 mg PO BID 10/17/20 [History] Montelukast [Singulair] 10 mg PO BEDTIME 10/17/20 [History] Prenaplus 1 tab PO DAILY 10/17/20 [History] QUEtiapine [SEROquel] 50 mg PO BEDTIME 10/17/20 [History] Sodium Chloride 1 gm PO BID 10/17/20 [History] polyethylene glycoL 3350 [MiraLAX] 17 gm PO DAILY PRN 10/17/20 [History] Past Medical History HEENT History: Reports: Allergic Rhinitis Cardiovascular History: Reports: Hypertension Respiratory History: Reports: Asthma Gastrointestinal History: Reports: Other (See Below) Other Gastrointestinal History: Esophageal obstruction (impacted peach pit) Attempted removal (Dr. Marte). Transferred to [facility]. Genitourinary History: Reports: Urinary Incontinence Musculoskeletal History: Reports: Other (See Below) Other Musculoskeletal History: LEFT ARM CONTRACTURE Neurological History: Reports: Cerebral Palsy, Seizure, Other (See Below) Other Neuro History: Intellectual disability, impulse control disorder, mood disorder. Psychiatric History: Reports: Emotional Problems, Mood Swings Other Psychiatric History: CP, cerebral palsy, impulse control disorder, intellectual disability. Mental retardation Endocrine/Metabolic History: Reports: Osteopenia Hematologic History: Reports: Anemia, Iron Deficiency Immunologic History: Reports: None Oncologic (Cancer) History: Reports: None Dermatologic History: Reports: Other (See Below) Other Dermatologic History: Acne, gum disease, nonorganic enuresis. (right olecranon bursitis - before) - Infectious Disease History Infectious Disease History: Reports: None - Past Surgical History Head Surgeries/Procedures: Reports: None HEENT Surgical History: Reports: None Cardiovascular Surgical History: Reports: None Respiratory Surgical History: Reports: None GI Surgical History: Reports: Other (See Below) Other GI Surgeries/Procedures: Abcess drained right axillary (MRSA infection) long ago Male Surgical History: Reports: Other (See Below) Other Male Surgeries/Procedures: Left inguinal/radical orchiectomy 05-05-00 (Dr. Robb) Dermatological Surgical History: Reports: Other (See Below) Social & Family History - Family History Family Medical History: No Pertinent Family History - Tobacco Use Tobacco Use Status *Q: Never Tobacco User - Caffeine Use Caffeine Use: Reports: Coffee - Recreational Drug Use Recreational Drug Use: No ED ROS GENERAL - Review of Systems Review Of Systems: Comprehensive ROS is negative, except as noted in HPI. - Physical Exam Exam: See Below Exam Limited By: No Limitations General Appearance: Alert, WD/WN, No Apparent Distress Eye Exam: Bilateral Eye: EOMI, Normal Inspection, PERRL Ears: Normal External Exam, Normal Canal, Hearing Grossly Normal, Normal TMs Nose: Normal Inspection, Normal Mucosa, No Blood Throat/Mouth: Normal Inspection, Normal Lips, Normal Teeth, Normal Gums, Normal Oropharynx, Normal Voice, No Airway Compromise Head Exam: Atraumatic, Normocephalic Neck: Normal Inspection, Supple, Non-Tender, Full Range of Motion Respiratory/Chest: Other (diminished expiratory wheezes) Cardiovascular: Normal Peripheral Pulses, Regular Rate, Rhythm, No Edema, No Gallop, No JVD, No Murmur, No Rub GI/Abdominal: Normal Bowel Sounds, Non-Tender (Male) Exam: Deferred Rectal (Males) Exam: Deferred Neuro Exam (Abbreviated): Other (at baseline cognition) Back Exam: Normal Inspection, Full Range of Motion, NT Extremities: Normal Inspection, Normal Range of Motion, Non-Tender, No Pedal Edema, Normal Capillary Refill Psychiatric: Normal Affect, Normal Mood Skin Exam: Warm, Dry, Intact, Normal Color, No Rash Course - Vital Signs Last Recorded V/S: Last Vital Signs Temp 97.2 F 12/13/20 14:34 Pulse 96 12/13/20 14:34 Resp 20 12/13/20 14:34 BP 160/80 H 12/13/20 14:34 Pulse Ox 100 12/13/20 14:34 - Orders/Labs/Meds Labs: Laboratory Tests 12/13/20 12/13/20 12/13/20 Range/Units 15:20 15:24 15:24 WBC 8.8 (5.0-10.0) 10^3/uL RBC 3.64 L (4.6-6.2) 10^6/uL Hgb 9.8 L D (14.0-18.0) g/dL Hct 29.2 L (40.0-54.0) % MCV 80.2 (80-100) fL MCH 26.9 L (27.0-34.0) pg MCHC 33.6 (33.0-35.0) g/dL Plt Count 318 (150-450) 10^3/uL Neut % (Auto) 65.3 (42.2-75.2) % Lymph % (Auto) 21.1 (20.5-50.1) % [place] % (Auto) 8.1 H (2-8) % Eos % (Auto) 5.0 H (1.0-3.0) % Baso % (Auto) 0.5 (0.0-1.0) % Sodium 129 L D (136-145) mmol/L Potassium 4.6 (3.5-5.1) mmol/L Chloride 91 L (98-107) mmol/L Carbon Dioxide 29 (21-32) mmol/L Anion Gap 13.6 H (7-13) mEq/L BUN 10 (7-18) mg/dL Creatinine 0.88 (0.70-1.30) mg/dL Est Cr Clr Drug Dosing 85.55 mL/min Estimated GFR (MDRD) > 60 BUN/Creatinine Ratio 11.4 (No establ ref range) Glucose 105 H (74-99) mg/dL Calcium 8.9 (8.5-10.1) mg/dL Total Bilirubin 0.5 (0.2-1.0) mg/dL AST 12 L (15-37) U/L ALT 23 (16-63) U/L Alkaline Phosphatase 86 (46-116) U/L Total Protein 6.9 (6.4-8.2) g/dL Albumin 3.2 L (3.4-5.0) g/dL Globulin 3.7 Albumin/Globulin Ratio 0.86 Urine Color Yellow (YELLOW) Urine Appearance Clear (CLEAR) Urine pH 7.0 (5.0-9.0) Ur Specific [place] 1.015 (1.005-1.030) Urine Protein Negative (NEGATIVE) Urine Glucose (UA) Negative (NEGATIVE) Urine Ketones Negative (NEGATIVE) Urine Occult Blood Negative (NEGATIVE) Urine Nitrite Negative (NEGATIVE) Urine Bilirubin Negative (NEGATIVE) Urine Urobilinogen 0.2 (0.2-1.0) mg/dL Ur Leukocyte Esterase Negative (NEGATIVE) - Radiology Interpretation Free Text/Narrative:: Chest xray: PROCEDURE INFORMATION: Exam: XR Chest Exam date and time: 12/13/2020 4:08 PM Age: 60 years old Clinical indication: Cough; Patient HX: Mentally challenged, best uprights i could get; Additional info: Course, wheezes, asthma TECHNIQUE: Imaging protocol: XR of the chest Views: 1 view. COMPARISON: CR Chest 1V [facility] 05/29/2019 11:14 PM FINDINGS: Tubes, catheters and devices: Right sided indwelling central venous catheter with tip in the superior vena cava. Lungs: No suspicious pulmonary nodules or areas of lung consolidation. Pleural spaces: Unremarkable. No pleural effusion. No pneumothorax. Heart/Mediastinum: Unremarkable. No cardiomegaly. Bones/joints: Arthritis of each shoulder. Age-appropriate spondylosis with a levoscoliosis. IMPRESSION: 1. No active disease of the chest. 2. No significant interval change when compared to the CR Chest 1V [facility] 05/29/2019 11:14 PM. Thank you for allowing us to participate in the care of your patient. Dictated and Authenticated by: Berny Sebastian MD 12/13/2020 5:02 PM Central Time ([place] & [place]) Abdomen xray: PROCEDURE INFORMATION: Exam: XR Abdomen Exam date and time: 12/13/2020 4:11 PM Age: 60 years old Clinical indication: Other: Pain--best uprights i could get; Additional info: HX of sbo, small bms TECHNIQUE: Imaging protocol: XR of the abdomen. Views: Frontal supine view of the abdomen. 1 View. COMPARISON: CR Abdomen 1[facility] 05/29/2019 8:20 PM FINDINGS: Gastrointestinal tract: Normal. No bowel dilation. Bones/joints: Mild S shaped scoliosis. Mild spondylosis. IMPRESSION: No evidence for small bowel obstruction. Thank you for allowing us to participate in the care of your patient. Dictated and Authenticated by: Berny Sebastian MD 12/13/2020 5:03 PM Central Time ([place] & [place]) See rad report Departure - Departure Time of Disposition: 17:08 Disposition: Home, Self-Care 01 Condition: Good Clinical Impression: Hyponatremia, Hypochloremia, Seizure-like activity Anemia Qualifiers: Anemia type: unspecified type Qualified Code(s): D64.9 - Anemia, unspecified - Discharge Information *PRESCRIPTION DRUG MONITORING PROGRAM REVIEWED*: No *COPY OF PRESCRIPTION DRUG MONITORING REPORT IN PATIENT CAROLEE: No Instructions: Seizure, Adult, [id number], Dehydration, Adult, [id number], Hyponatremia, [id number] Forms: ED Department Discharge Additional Instructions: Encourage drinking water, powerade/gatorade Follow up with primary care facility this week for recheck of labs Return to the ER with any further problems Sepsis Event Note (ED) - Evaluation Sepsis Screening Result: No Definite Risk - Focused Exam Vital Signs: Vital Signs Temp Pulse Resp BP Pulse Ox 12/13/20 14:34 97.2 F 96 20 160/80 H 100 I have read and agree with the documentation that has been completed regarding this visit. By signing this record, I attest that the documentation was completed in my physical presence and is an accurate record of the encounter.
== END 2020-12-13 17:18 | disposition home or self-care (01) ==
LOC: DL.ED 14:29
DX: D64.9 Anemia, unspecified (principal); E87.1 Hypo-osmolality and hyponatremia; E87.8 Other disorders of electrolyte and fluid balance, not elsewhere classified; I10 Essential (primary) hypertension; R56.9 Unspecified convulsions; J45.909 Unspecified asthma, uncomplicated; G80.9 Cerebral palsy, unspecified; Z91.048 Other nonmedicinal substance allergy status; Z91.018 Allergy to other foods; Z79.899 Other long term (current) drug therapy
CPT/HCPCS: 36415; 71045; 74018; 80053; 80175; 81003; 85025; 99284; 99284-25

== ENCOUNTER 2021-02-08 16:35 | Emergency (ER) | payer MEDICAID ==
[2021-02-08] MEDS ORDERED: Propofol 200 MG/20 ML SDV IV ONE (16:36)
[2021-02-08] MEDS ORDERED: Ketamine 500 mg/10 ML MDV IV ONE (16:36)
[2021-02-08] MEDS ORDERED: Bacitracin Oint 1 GM U/D Packet TOP ONE (16:41)
[2021-02-08] MEDS ORDERED: Lidocaine 1% 30 ML SDV INJECT ONE (16:41)
[2021-02-08] MEDS ORDERED: Diphtheria,Pertussis(Acell),Tetanus Vaccine 0.5 ML Syringe IM ONE (16:42)
[2021-02-08 16:54] VITALS: BP 159/88; PULSE 96
--- NOTE | 2021-02-08 17:45 | EDM.PDOC ---
Scribed by Delisa Ken 02/08/21 9269 for Stanley Caledra MD ED HPI GENERAL MEDICAL PROBLEM - General Chief Complaint: Laceration Stated Complaint: AMBULANCE Time Seen by Provider: 02/08/21 16:40 Source of Information: Reports: Patient, EMS, EMS Notes Reviewed, RN, RN Notes Reviewed History Limitations: Reports: Other (DD/MR.) - History of Present Illness INITIAL COMMENTS - FREE TEXT/NARRATIVE: Patient arrives to ED by [facility] with a 4cm laceration on the left forehead. Patient fell against a wall and sustained a laceration to the forehead. Denies any other injuries or areas of pain. Last tetanus vaccine date/year is unknown. Onset: Today Location: Reports: Head Quality: Reports: Ache Severity: Moderate Improves with: Reports: None Worsens with: Reports: None Associated Symptoms: Reports: No Other Symptoms - Related Data Allergies Allergy/AdvReac Type Severity Reaction Status Date / Time animal dander Allergy Cannot Verified 12/13/20 14:47 Remember mold Allergy Cannot Verified 12/13/20 14:47 Remember ragweed pollen Allergy Cannot Verified 12/13/20 14:47 Remember walnut Allergy Cannot Verified 12/13/20 14:47 Remember corn Allergy Difficulty Uncoded 10/17/20 21:21 Breathing cotton seed Allergy Cannot Uncoded 10/17/20 21:21 Remember dust Allergy Cannot Uncoded 10/17/20 21:21 Remember Home Meds: Home Meds Albuterol [Proventil Neb Soln] 2.5 mg INH TID PRN 01/26/15 [History] Budesonide [Pulmicort] 0.5 mg INH BID 01/26/15 [History] Calcium Carbonate/Vitamin D3 [Oyster Shell Calcium-Vit D Tab] 1 each PO BID 01/26/15 [History] Fluticasone Furoate [Veramyst] 2 spray NASBOTH DAILY 01/26/15 [History] Ibandronate [Boniva] 150 mg PO .MONTHLY 01/26/15 [History] Imipramine HCl 50 mg PO BEDTIME 01/26/15 [History] Na Chloride. 1 gm PO BID 01/26/15 [History] QUEtiapine [SEROquel] 300 mg PO BEDTIME 01/26/15 [History] Escitalopram [Lexapro] 20 mg PO BEDTIME 09/21/15 [History] Clindamycin Phosphate 1 ml TOP BID 12/02/15 [History] Ferrous Fumarate [Ferrocite] 106 mg PO BID 12/02/15 [History] lamoTRIgine [Lamictal] 150 mg PO BID 12/02/15 [History] Metoprolol Tartrate 25 mg PO BID 05/29/19 [History] Tamsulosin [Flomax] 0.4 mg PO BEDTIME 05/29/19 [History] Acetaminophen [Acetaminophen Extra Strength] 500 mg PO BID 10/17/20 [History] Albuterol [Proventil HFA] 200 puff INH Q1H PRN 10/17/20 [History] Albuterol/Ipratropium [DuoNeb 3.0-0.5 MG/3 ML] 1 dose INH Q4H 10/17/20 [History] Carbamide Peroxide [Debrox] 15 ml OT ASDIRECTED 10/17/20 [History] Docusate Sodium 100 mg PO BID 10/17/20 [History] Montelukast [Singulair] 10 mg PO BEDTIME 10/17/20 [History] Prenaplus 1 tab PO DAILY 10/17/20 [History] QUEtiapine [SEROquel] 50 mg PO BEDTIME 10/17/20 [History] Sodium Chloride 1 gm PO BID 10/17/20 [History] polyethylene glycoL 3350 [MiraLAX] 17 gm PO DAILY PRN 10/17/20 [History] Past Medical History HEENT History: Reports: Allergic Rhinitis Cardiovascular History: Reports: Hypertension Respiratory History: Reports: Asthma Gastrointestinal History: Reports: Other (See Below) Other Gastrointestinal History: Esophageal obstruction (impacted peach pit) Attempted removal (Dr. Marte). Transferred to [facility]. Genitourinary History: Reports: Urinary Incontinence Musculoskeletal History: Reports: Other (See Below) Other Musculoskeletal History: LEFT ARM CONTRACTURE Neurological History: Reports: Cerebral Palsy, Seizure, Other (See Below) Other Neuro History: Intellectual disability, impulse control disorder, mood disorder. Psychiatric History: Reports: Emotional Problems, Mood Swings Other Psychiatric History: CP, cerebral palsy, impulse control disorder, intellectual disability. Mental retardation Endocrine/Metabolic History: Reports: Osteopenia Hematologic History: Reports: Anemia, Iron Deficiency Immunologic History: Reports: None Oncologic (Cancer) History: Reports: None Dermatologic History: Reports: Other (See Below) Other Dermatologic History: Acne, gum disease, nonorganic enuresis. (right olecranon bursitis - before) - Infectious Disease History Infectious Disease History: Reports: None - Past Surgical History Head Surgeries/Procedures: Reports: None HEENT Surgical History: Reports: None Cardiovascular Surgical History: Reports: None Respiratory Surgical History: Reports: None GI Surgical History: Reports: Other (See Below) Other GI Surgeries/Procedures: Abcess drained right axillary (MRSA infection) long ago Male Surgical History: Reports: Other (See Below) Other Male Surgeries/Procedures: Left inguinal/radical orchiectomy 05-05-00 ( Dr. Robb) Dermatological Surgical History: Reports: Other (See Below) Social & Family History - Family History Family Medical History: No Pertinent Family History - Caffeine Use Caffeine Use: Reports: None ED ROS GENERAL - Review of Systems Review Of Systems: Unable To Obtain Reason Not Obtained: MR/DD pt unable to answer questions. ED EXAM, SKIN/RASH Exam: See Below Exam Limited By: Uncooperative (Due to MR/DD) General Appearance: Alert, No Apparent Distress, Anxious Eye Exam: Bilateral Eye: EOMI, Normal Inspection Nose: Normal Inspection, No Blood Throat/Mouth: Normal Lips, No Airway Compromise Head: Normocephalic, Other (4cm linear laceration to left forehead to depth of subcutaneous tissue) Neck: Normal Inspection, Non-Tender, Full Range of Motion Respiratory/Chest: No Respiratory Distress, Lungs Clear Cardiovascular: Regular Rate, Rhythm, Tachycardia GI/Abdominal: Soft, Non-Tender Back Exam: Full Range of Motion Extremities: Normal Inspection, Normal Range of Motion, Non-Tender Neurological: Alert, No Motor/Sensory Deficits, Other (At baseline per caregiver) ED SKIN PROCEDURES - Laceration/Wound Repair Left Lateral Forehead Appearance: Subcutaneous, Linear, Clean Distal NVT: Neuro & Vascular Intact Anesthetic Type: Local Local Anesthesia - Lidocaine (Xylocaine): 1% Plain Local Anesthetic Volume: Other (7cc) Skin Prep: Chlorhexidine (Hibiciens), Saline, Sterile Drape Saline Irrigation (cc's): 500 Exploration/Debridement/Repair: Wound Explored, In a Bloodless Field, Explored to Base, Minimal Debridement, Minimally Undermined Closed with: Sutures Lac/Wound length In cm: 4 Suture Size: 4-0 # of Sutures: 7 Suture Type: Nylon, Running Drain Placement: No Sterile Dressing Applied: Nurse Tetanus Status Addressed: Yes Complications: No Course - Vital Signs Last Recorded V/S: Last Vital Signs Temp 97.6 F 02/08/21 16:51 Pulse 96 02/08/21 16:51 Resp 14 02/08/21 16:51 BP 159/88 H 02/08/21 16:51 Pulse Ox 98 02/08/21 16:51 - Orders/Labs/Meds Orders: Active Orders 24 hr Category Date Time Status Vaccines to be Administered [RC] PER UNIT ROUTINE Care 02/08/21 16:42 Active Meds: Medications Discontinued Medications Generic Name Dose Route Start Last Admin Trade Name Freq PRN Reason Stop Dose Admin Bacitracin 1 dose 02/08/21 16:41 02/08/21 17:26 Bacitracin Oint 1 Gm U/D Packet TOP 02/08/21 16:42 1 dose ONETIME ONE Administration Diphtheria/Tetanus/Acell Pertussis 0.5 ml 02/08/21 16:42 02/08/21 17:27 Diphtheria,Pertussis(Acell),Tetanus Vaccine 0.5 Ml Syringe IM 02/08/21 16:43 0.5 ml .ONCE ONE Administration Lidocaine HCl 30 ml 02/08/21 16:41 02/08/21 17:24 Lidocaine 1% 30 Ml Sdv INJECT 02/08/21 16:42 10 ml ONETIME ONE Administration - Re-Assessments/Exams Free Text/Narrative Re-Assessment/Exam: 02/08/21 17:02 See FOOD QUALITY TECHNICIAN note for sedation. 02/08/21 17:38 FOOD QUALITY TECHNICIAN (Eddie) reports pt suspected to have aspirated a small amount while emerging from sedation, and recommends close observation by the care givers with clinic or ER f/u if any cough or fevers develop. Departure - Departure Time of Disposition: 18:20 Disposition: Home, Self-Care 01 Condition: Good Clinical Impression: Forehead laceration Qualifiers: Encounter type: initial encounter Qualified Code(s): S01.81XA - Laceration without foreign body of other part of head, initial encounter Aspiration into airway Qualifiers: Encounter type: initial encounter Qualified Code(s): T17.908A - Unspecified foreign body in respiratory tract, part unspecified causing other injury, initial encounter - Discharge Information *PRESCRIPTION DRUG MONITORING PROGRAM REVIEWED*: Not Applicable *COPY OF PRESCRIPTION DRUG MONITORING REPORT IN PATIENT CAROLEE: Not Applicable Instructions: Laceration Care, Adult, Aspiration Precautions, Adult Forms: ED Department Discharge Additional Instructions: Follow up in clinic for suture removal in 7 to 10 days. Monitor for signs of aspiration for one week (See aspiration information handout). Return to ER for any new cough, difficulty breathing, or fevers. Use inhalers/nebulizers as prescribed on chronic home medication list. Sepsis Event Note (ED) - Focused Exam Vital Signs: Vital Signs Temp Pulse Resp BP Pulse Ox 02/08/21 16:51 97.6 F 96 14 159/88 H 98 - My Orders Last 24 Hours: My Active Orders 02/08/21 16:42 Vaccines to be Administered [RC] PER UNIT ROUTINE - Assessment/Plan Last 24 Hours: My Active Orders 02/08/21 16:42 Vaccines to be Administered [RC] PER UNIT ROUTINE I have read and agree with the documentation that has been completed regarding this visit. By signing this record, I attest that the documentation was completed in my physical presence and is an accurate record of the encounter.
== END 2021-02-08 18:13 | disposition home or self-care (01) ==
LOC: DL.ED 16:35
DX: S01.81XA Laceration without foreign body of other part of head, initial encounter (principal); T17.908A Unspecified foreign body in respiratory tract, part unspecified causing other injury, initial encounter; J45.909 Unspecified asthma, uncomplicated; I10 Essential (primary) hypertension; Z79.899 Other long term (current) drug therapy; Z91.018 Allergy to other foods; Z91.09 Other allergy status, other than to drugs and biological substances; Z23 Encounter for immunization; Z91.048 Other nonmedicinal substance allergy status; W18.09XA Striking against other object with subsequent fall, initial encounter
CPT/HCPCS: 01999; 12013; 90471; 90715; 99283; 99283-25; J1642; J2704

== ENCOUNTER 2022-05-27 11:34 | Emergency (ER) | payer MEDICAID ==
[~2022-05-27 11:34] MED LIST: Sodium Chloride 0.9% 10 ML Syringe FLUSH PRN
[2022-05-27 12:11] LABS: CHLORIDE,CL 105 mmol/L (98-107); SODIUM,NA 141 mmol/L (136-145)
[2022-05-27 12:16] VITALS: BP 160/94; PULSE 95
[2022-05-27 12:20] LABS: ESTIMATED GFR 84 mL/min (>=60)
[2022-05-27 13:23] LABS: CORONAVIRUS COVID-19 NAA POSITIVE (NEGATIVE)
== END 2022-05-27 13:53 | disposition home or self-care (01) ==
LOC: DL.ED 11:34
DX: U07.1 COVID-19 (principal); J45.909 Unspecified asthma, uncomplicated; I10 Essential (primary) hypertension; Z91.048 Other nonmedicinal substance allergy status; Z91.018 Allergy to other foods; Z79.899 Other long term (current) drug therapy
CPT/HCPCS: 0240U; 36415; 71045; 80053; 81003; 83880; 84484; 85025; 93005; 99285; J3490; 93010; 99284

== ENCOUNTER 2022-06-04 21:56 | Emergency (ER) | payer MEDICAID ==
[2022-06-04] MEDS ORDERED: Metoprolol Succinate 25 MG Tab.ER PO ONE (23:11)
[2022-06-04 23:43] VITALS: BP 161/93; PULSE 89
== END 2022-06-04 23:46 | disposition home or self-care (01) ==
LOC: DL.ED 21:56
DX: I10 Essential (primary) hypertension (principal); J45.909 Unspecified asthma, uncomplicated; Z91.09 Other allergy status, other than to drugs and biological substances; Z91.048 Other nonmedicinal substance allergy status; Z86.16 Personal history of COVID-19; Z91.018 Allergy to other foods; Z79.899 Other long term (current) drug therapy
CPT/HCPCS: 99283; A9270